=== PATIENT | female | born 1980 | race African-American/Black ===

== ENCOUNTER → 2016-09-09 | Outpatient (REF) | payer OTHER ==
[~2016-09-09] MED LIST: COLA100C PO; MOTR200T44 PO; PERCOCET PO
[2016-09-09 18:23] LABS: MEAN CORPUSCULAR HEMOGLOBIN 27.6 pg (27.0-33.0); MEAN CORPUSCULAR HGB CONC 33.2 g/dl (32.0-36.5); MEAN CORPUSCULAR VOLUME 83.1 fl (80.0-96.0); RED CELL DISTRIBUTION WIDTH 13.1 % (11.5-14.5); WHITE BLOOD COUNT 6.5 K/mm3 (4.0-10.0)
[2016-09-09 19:27] LABS: ALBUMIN 3.9 GM/DL (3.2-5.2); ALBUMIN/GLOBULIN RATIO 1.05 (1.00-1.93); ALKALINE PHOSPHATASE 125 U/L (45-117); ALT/SGPT 17 U/L (12-78); ANION GAP 10 MEQ/L (8-16); AST/SGOT 13 U/L (15-37); BILIRUBIN,TOTAL 0.5 MG/DL (0.2-1.0); BLOOD UREA NITROGEN 10 MG/DL (7-18); CARBON DIOXIDE LEVEL 23 MEQ/L (21-32); CHLORIDE LEVEL 106 MEQ/L (98-107); GLOMERULAR FILTRATION RATE > 60.0 (>60); GLUCOSE, FASTING 77 MG/DL (70-105); SODIUM LEVEL 139 MEQ/L (136-145); TOTAL PROTEIN 7.6 GM/DL (6.4-8.2)
== END ==
LOC: M SFHCLERA 14:58
PROVIDERS: ATTEND Physician Assistant
DX: I10 Essential (primary) hypertension (principal)

== ENCOUNTER → 2016-11-26 | Outpatient (CLI) | payer OTHER ==
[~2016-11-26] MED LIST changes: -COLA100C PO; +COLA100C3 PO; +ISOVUE-370 76% 100ML VIAL (Q9967) As Ordered ONE
--- NOTE | 2016-11-26 11:22 | REP ---
CT ANGIO of the abdomen with IV contrast: History: Hypertension. Question renal artery stenosis. CT contrast dose: 100 ml of Isovue [address] technique: Helical scanning is acquired and 3 mm axial images are reformatted. Thick slab sagittal and coronal maximal intensity projection images are generated and reviewed. 3-D surface rendered imaging is acquired. Oblique axis multiplanar re-formation images are generated and reviewed through the renal arteries as well. Nonvascular CT findings: There are minimal degenerative spondylosis changes in the lumbar spine. No adrenal lesion is seen. No retroperitoneal mass or adenopathy seen. Vascular findings: The suprarenal and infrarenal abdominal aorta are normal in caliber. Celiac and superior mesenteric artery origins are widely patent. The CARLOS is patent and unremarkable as well. Singular non-stenotic bilateral renal arteries are seen. There is no CT angiographic evidence of arterial atherosclerosis, vasculitis or fibromuscular dysplasia. The right kidney measures 10.5 cm in length and the left kidney measures 9.2 cm in length. 3-D surface rendered images are unremarkable. The common iliac arteries are widely patent. Curved array MPR images show no additional finding. Impression: Normal CT angiography of the aorta and renal arteries. Signed by Daniel Mckinney MD 11/26/2016 12:55 P
== END ==
LOC: M RAD 09:12
PROVIDERS: ATTEND Physician Assistant
DX: I10 Essential (primary) hypertension (principal)

== ENCOUNTER → 2016-12-12 | Outpatient (REF) | payer OTHER ==
[~2016-12-12] MED LIST changes: -ISOVUE-370 76% 100ML VIAL (Q9967) As Ordered ONE
[2016-12-12 21:15] LABS: FREE T4 1.13 NG/DL (0.76-1.46)
== END ==
LOC: M SFHCLERA 15:13
PROVIDERS: ATTEND Physician Assistant
DX: R63.5 Abnormal weight gain (principal); Z13.220 Encounter for screening for lipoid disorders

== ENCOUNTER → 2017-03-12 | Outpatient (CLI) | payer OTHER ==
[~2017-03-12] MED LIST changes: -COLA100C3 PO; +COLA100C5 PO
--- NOTE | 2017-03-15 13:18 | SLEEPHOME ---
DATE OF STUDY: 03/12/2017 ORDERED BY: Maryan Rahman NP Diagnostic home sleep testing was performed due to concern for the obstructive sleep apnea syndrome. For testing, a NOX-T3 respiratory monitoring device was used. Continuous record was made of pulse, oxygen saturation, airflow, chest and abdominal strain, and body position. 10 hours and 59 minutes of data were reviewed. Of these, 10 hours and 24 minutes were marked as time in bed. During the interval marked time in bed, there were 52 respiratory events identified of 10 seconds in duration or greater for a respiratory event index of 5. The events were primarily obstructive. Baseline pulse rate was 53 beats per minute. Pulse rate ranged 40 to 96. Baseline saturation was 96%. Lowest oxygen saturation was 87%. Testing was performed in both the supine and nonsupine positions. IMPRESSION: Abnormal home sleep testing with repetitive respiratory events and oxygen desaturations to 87% with a respiratory event index of 5 is consistent with the obstructive sleep apnea syndrome. RECOMMENDATION: The patient should be referred for a formal sleep evaluation and in-laboratory pressure titration.
== END ==
LOC: M SLEEP HO 12:51
PROVIDERS: ATTEND Nurse Practitioner Adult Health
DX: G47.30 Sleep apnea, unspecified (principal)

== ENCOUNTER → 2017-03-12 | Outpatient (REF) | payer OTHER ==
[2017-03-12 20:03] LABS: BASO % 0.5 % (0.0-1.0); EOS # 0.1 K/mm3 (0.0-0.50); EOS % 1.3 % (0.0-3.0); LARGE UNSTAINED CELL # 0.1 K/mm3 (0.0-0.4); LARGE UNSTAINED CELL % 1.8 % (0.0-4.0); LYMPH # 1.5 K/mm3 (1.5-4.5); LYMPH % 26.8 % (24.0-44.0); MEAN CORPUSCULAR HEMOGLOBIN 27.5 pg (27.0-33.0); MEAN CORPUSCULAR HGB CONC 33.2 g/dl (32.0-36.5); MEAN CORPUSCULAR VOLUME 82.8 fl (80.0-96.0); MONO # 0.3 K/mm3 (0.0-0.8); MONO % 5.5 % (0.0-5.0); NEUTROPHILS # 3.4 K/mm3 (1.8-7.7); NEUTROPHILS % 64.1 % (36.0-66.0); PLATELET COUNT, AUTOMATED 296 k/mm3 (150-450); WHITE BLOOD COUNT 5.2 K/mm3 (4.0-10.0)
[2017-03-12 20:20] LABS: ALBUMIN 4.1 GM/DL (3.2-5.2); ALBUMIN/GLOBULIN RATIO 1.17 (1.00-1.93); BILIRUBIN,TOTAL 0.5 MG/DL (0.2-1.0); CALCIUM LEVEL 9.5 MG/DL (8.5-10.1); CREATININE FOR GFR 1.49 MG/DL (0.55-1.02); GLOMERULAR FILTRATION RATE 51.4 (>60); TOTAL PROTEIN 7.6 GM/DL (6.4-8.2)
[2017-03-12 20:25] LABS: FOLATE 6.4 NG/ML (>5.4)
== END ==
LOC: M LAB REF 19:30
PROVIDERS: ATTEND Psychiatry & Neurology Neurology
DX: G43.711 Chronic migraine without aura, intractable, with status migrainosus (principal); G44.221 Chronic tension-type headache, intractable

== ENCOUNTER → 2018-04-29 | Outpatient (CLI) | payer OTHER | LOC: M LRY 16:22 | DX: I10 Essential (primary) hypertension (principal) | CPT/HCPCS: 71046 ==

== ENCOUNTER → 2018-04-29 | Outpatient (REF) | payer OTHER ==
[2018-04-29 20:32] LABS: ALBUMIN 3.6 GM/DL (3.2-5.2); ALBUMIN/GLOBULIN RATIO 0.97 (1.00-1.93); ALKALINE PHOSPHATASE 103 U/L (45-117); ALT/SGPT 20 U/L (12-78); ANION GAP 9 MEQ/L (8-16); AST/SGOT 15 U/L (7-37); BILIRUBIN,TOTAL 0.2 MG/DL (0.2-1.0); BLOOD UREA NITROGEN 18 MG/DL (7-18); CALCIUM LEVEL 8.2 MG/DL (8.5-10.1); CARBON DIOXIDE LEVEL 25 MEQ/L (21-32); CHLORIDE LEVEL 106 MEQ/L (98-107); CHOLESTEROL LEVEL 219 MG/DL (<200); CREATININE FOR GFR 1.23 MG/DL (0.55-1.30); FREE T4 0.98 NG/DL (0.76-1.46); GLOMERULAR FILTRATION RATE > 60.0 (>60); GLUCOSE, FASTING 81 MG/DL (70-100); HDL CHOLESTEROL 56 MG/DL (>40); LDL CHOLESTEROL 136 MG/DL (<100); NON-HDL-C 163 MG/DL; POTASSIUM SERUM 4.8 MEQ/L (3.5-5.1); SODIUM LEVEL 140 MEQ/L (136-145); TOTAL PROTEIN 7.3 GM/DL (6.4-8.2); TRIGLYCERIDES LEVEL 136 MG/DL (<150)
[2018-04-29 20:34] LABS: TOTAL 25(OH) VITAMIN D 15.6 NG/ML (30.0-100.0)
== END ==
LOC: M SFHCPLAZ 16:11
DX: I10 Essential (primary) hypertension (principal); E66.9 Obesity, unspecified; M77.8 Other enthesopathies, not elsewhere classified
CPT/HCPCS: 84443

== ENCOUNTER → 2018-08-16 | Outpatient (REF) | payer OTHER ==
[2018-08-16 19:47] LABS: ALBUMIN 3.8 GM/DL (3.2-5.2); BILIRUBIN,TOTAL 0.3 MG/DL (0.2-1.0); CALCIUM LEVEL 8.8 MG/DL (8.5-10.1); CREATININE FOR GFR 1.41 MG/DL (0.55-1.30); GLOMERULAR FILTRATION RATE 54.1 (>60); POTASSIUM SERUM 4.4 MEQ/L (3.5-5.1); TOTAL PROTEIN 7.6 GM/DL (6.4-8.2)
== END ==
LOC: M SFHCPLAZ 15:24
PROVIDERS: ATTEND Nurse Practitioner Family
DX: I10 Essential (primary) hypertension (principal); E55.9 Vitamin D deficiency, unspecified

== ENCOUNTER → 2018-11-16 | Outpatient (REF) | payer OTHER ==
[2018-11-16 18:11] LABS: CALCIUM LEVEL 8.7 MG/DL (8.5-10.1); CREATININE FOR GFR 1.33 MG/DL (0.55-1.30); GLOMERULAR FILTRATION RATE 57.9 (>60); POTASSIUM SERUM 4.5 MEQ/L (3.5-5.1)
[2018-11-16 18:21] LABS: TOTAL 25(OH) VITAMIN D 67.7 NG/ML (30.0-100.0)
== END ==
LOC: M SFHCPLAZ 15:36
PROVIDERS: ATTEND Nurse Practitioner Family
DX: G43.709 Chronic migraine without aura, not intractable, without status migrainosus (principal); E55.9 Vitamin D deficiency, unspecified